=== PATIENT | male | born 2005 | race Two or more races ===

== ENCOUNTER 2023-09-05 12:30 | Emergency (ER) | payer OTHER ==
[~2023-09-05] VITALS: Ht 175.3 cm; Wt 79.6 kg
[2023-09-05 13:12] VITALS: BP 156/95; PULSE 80; RESP 18; TEMP 98.3; O2SAT 98
[2023-09-05 16:09] LABS: Urine Bacteria None Seen /hpf (None Seen)
[2023-09-05 16:44] LABS: Urine Blood Negative /uL (Negative); Urine Clarity Clear (Clear); Urine Color Yellow (Yellow); Urine Mucus FEW (None Seen); Urine Protein, UAD 1+ (Negative); Urine Specific Gravity 1.041 (1.001-1.035); Urine Urobilinogen Normal (Negative); Urine WBC 1 /hpf (0 - 3)
[2023-09-05] MEDS ORDERED: NAPR-746 PO (17:13)
[2023-09-06 08:07] LABS: RPR Non Reactive (Non Reactive)
[2023-09-06 15:06] LABS: Chlamydia Trachomatis, NAA Negative (Negative); Neisseria gonorrhoeae, NAA Negative (Negative)
== END 2023-09-05 17:18 | disposition home or self-care (01) ==
LOC: ER 12:30
DX: N50.812 Left testicular pain (principal); Z20.6 Contact with and (suspected) exposure to human immunodeficiency virus [HIV]
CPT/HCPCS: 76870; 81001; 86592; 86703

== ENCOUNTER 2023-09-26 19:11 | Emergency (ER) | payer OTHER ==
[~2023-09-26] VITALS: Ht 175.3 cm; Wt 79.4 kg
[~2023-09-26 19:11] MED LIST: NAPR-746 PO
[2023-09-27] MEDS ORDERED: IBUP-1456 PO (01:49)
[2023-09-27] MEDS ORDERED: CYCL-614 PO (01:49)
[2023-09-27 01:50] VITALS: BP 153/72; PULSE 80; RESP 18; TEMP 98.2; O2SAT 98
[2023-09-27] MEDS: ACETAMINOPHEN 325 MG TAB PO ONE (01:55)
== END 2023-09-27 04:37 | disposition home or self-care (01) ==
LOC: ER 19:11
DX: S16.1XXA Strain of muscle, fascia and tendon at neck level, initial encounter (principal); S46.911A Strain of unspecified muscle, fascia and tendon at shoulder and upper arm level, right arm, initial encounter; R51.9 Headache, unspecified; V43.52XA Car driver injured in collision with other type car in traffic accident, initial encounter; Y93.89 Activity, other specified; Y92.89 Other specified places as the place of occurrence of the external cause; Y99.8 Other external cause status
CPT/HCPCS: 70450; 72125

== ENCOUNTER 2024-11-29 20:25 | Emergency (ER) | payer OTHER ==
[~2024-11-29] VITALS: Ht 177.8 cm; Wt 81.4 kg
[~2024-11-29 20:25] MED LIST changes: +CYCL-614 PO; +IBUP-1455 PO; +IBUP-1456 PO
--- NOTE | 2024-11-29 20:42 | ED.PDOC ---
Eye-HPI HPI Comments PT PRESENTED TO ED FOR SORE THROAT, CONGESTION, HEADACHE, NAUSEA X1 WEEK. PT STATED HE TOOK HIS MOMS' ANTIBIOTICS W/O RELIEF. GCS-15, ALL VSS. Denies fever, chills, shortness breath, chest pain, difficulty breathing, vomiting, recent travel, or known Chief Complaint: Sore Throat Time Seen by MD: 20:27 Primary Care Provider: Unknown Reviewed Notes: Nurses Notes, Medications, Allergies Allergies: Coded Allergies: NO KNOWN ALLERGIES (Unverified , 09/05/23) Home Meds Active Scripts Methylprednisolone (Medrol Dosepak) 4 Mg Bashir, 4 MG PO UD for 6 Days, #21 TAB UAD Prov:AJITH LOZOYA [employer]RO[employer] BAGGAGE PORTER 11/29/24 Azithromycin (Azithromycin) 500 Mg Tab, 1 TAB PO DAILY for 5 Days, #5 TAB Prov:AJITH LOZOYA [employer] BAGGAGE PORTER 11/29/24 Ibuprofen Micronized (Ibuprofen) 800 Mg Tab, 800 MG PO Q8HP PRN, #20 TAB Prov:SAYRA MATHEWS PAC 01/28/24 Cyclobenzaprine HCl (Cyclobenzaprine Hydrochlo) 5 Mg Tab, 5 MG PO QHSP, #14 TAB 0 Refills Prov:SYLVIA GOMEZ 09/27/23 Ibuprofen (Ibuprofen) 800 Mg Tab, 1 TAB PO TID PRN, #30 TAB 0 Refills Prov:SYLVIA GOMEZ 09/27/23 Naproxen (Naproxen) 500 Mg Tab, 500 MG PO BIDPC for 14 Days, #28 TAB 0 Refills Prov:WARREN CERNA CALL WORKER PERSON 09/05/23 Information Source: Patient Mode of Arrival: Ambulatory Past Medical History PAST MEDICAL HISTORY: Denies Surgical History: Denies all surgeries Family History Family History: Unknown Social History Smoker: Non-Smoker Alcohol: Denies ETOH Use Drugs: Denies Drug Use Lives In: Home All Other Systems: Reviewed and Negative (see hpi) Physical Exam General Appearance: No Apparent Distress, Normal HEENT: Pharyngeal Erythema, Sinuses (frontal tender on palpation), TMs Normal Neck: Full Range of Motion, Non-Tender Respiratory: Lungs Clear, No Respiratory Distress, Normal Breath Sounds Cardiovascular: No Murmur, Normal Peripheral Pulses, Regular Rate/Rhythm Breast Exam: Deferred Gastrointestinal: Non Tender, Soft Genitalia: Deferred Pelvic: Deferred Rectal: Deferred Extremities: Normal range of motion, No pedal edema Musculoskeletal : Apperance: Normal Neurologic: Alert, No Motor Deficits, Normal Affect, Normal Mood, No Sensory Deficits Cerebellar Function: Normal Reflexes: NOT DONE Skin: Dry, Normal Color, Warm Lymphatic: No Adenopathy Was a procedure done? Was a procedure done?: No EENT DIFF Eye: N/A Ear: N/A Nose: N/A Mouth: N/A Sore Throat: Douglas's Angina, Peritonsillar Abscess, Peritonsillar Cellulitis, Pharyngitis, Streptococcal X-Ray, Labs, Meds, VS Vital Signs Date Time Temp Pulse Resp B/P (MAP) Pulse Ox O2 Delivery O2 Flow Rate FiO2 11/29/24 21:45 98.2 72 18 135/72 (93) 99 98.2 11/29/24 21:45 72 18 99 Room Air 11/29/24 20:26 98.6 74 16 143/74 100 98.6 Current Medications Medications (Trade) Dose Ordered Sig/Kathleen Route Start Time Stop Time Status Last Admin Dexamethasone Sodium Phosphate (Decadron Injection) 10 mg ONCE ONCE IM 11/29/24 21:00 11/29/24 21:01 DC 11/29/24 21:30 Ceftriaxone Sodium (Rocephin) 1,000 mg ONCE ONCE IM 11/29/24 21:00 11/29/24 21:01 DC 11/29/24 21:30 Lidocaine HCl (Xylocaine 1%) 1.9 ml ONCE ONCE IJ 11/29/24 21:30 11/29/24 21:31 DC 11/29/24 21:30 Time of 1ST Reevaluation: 20:41 Reevaluation 1ST: Unchanged Reevaluation 2ND: Improved Patient Education/Counseling: Diagnosis, Treatment, Prognosis, Need For Follow Up Family Education/Counseling: No Family Present SEPSIS Sepsis Screen Date sepsis recognized/suspect: Nov 29, 2024 Time Sepsis recognized/suspect: 2028 Recent Procedure: No On Antibiotic Therapy: No Respiratory Rate >20: No Heart Rate >90: No Temp<36 C (96.8 F) or >38.3 C: No SBP <90 or MAP <65 mmHG: No New Acute Mental Status Change: No Is the patient on CPAP, BIPAP,: No Vital Signs Date Time Temp Pulse Resp B/P (MAP) Pulse Ox O2 Delivery O2 Flow Rate FiO2 11/29/24 21:45 98.2 72 18 135/72 (93) 99 98.2 11/29/24 21:45 72 18 99 Room Air 11/29/24 20:26 98.6 74 16 143/74 100 98.6 Medications Medications Dose Ordered Sig/Kathleen Route Start Time Stop Time Status Last Admin Dose Admin Ceftriaxone Sodium 1,000 mg ONCE ONCE IM 11/29/24 21:00 11/29/24 21:01 DC 11/29/24 21:30 Dexamethasone Sodium Phosphate 10 mg ONCE ONCE IM 11/29/24 21:00 11/29/24 21:01 DC 11/29/24 21:30 Lidocaine HCl 1.9 ml ONCE ONCE IJ 11/29/24 21:30 11/29/24 21:31 DC 11/29/24 21:30 Departure 1 Departure Time of Disposition: 20:47 Impression: Primary Impression: URI (upper respiratory infection) Qualified Codes: J06.9 - Acute upper respiratory infection, unspecified Disposition: HOME / SELF CARE / HOMELESS Condition: Stable e-Prescriptions Methylprednisolone (Medrol Dosepak) 4 Mg Bashir 4 MG PO UD for 6 Days, #21 TAB UAD Prov: AJITH LOZOYA 11/29/24 Azithromycin (Azithromycin) 500 Mg Tab 1 TAB PO DAILY for 5 Days, #5 TAB Prov: AJITH LOZOYA 11/29/24 Discharged With: Self Critical Care Note Critical Care Time?: No Stability Stability form required: No AJITH LOZOYA Nov 29, 2024 20:42
[2024-11-29] MEDS ORDERED: METH4PAK PO (20:48)
[2024-11-29] MEDS ORDERED: AZIT500T66 PO (20:48)
[2024-11-29] MEDS: cefTRIAXone SOD 1,000 MG VL IM ONE (21:30)
[2024-11-29] MEDS: LIDOCAINE 1% HCL (LOCAL ANESTH.) INJ 20ML MDV IJ ONE (21:30)
[2024-11-29 21:45] VITALS: BP 135/72; PULSE 72; RESP 18; TEMP 98.2; O2SAT 99
== END 2024-11-29 21:47 | disposition home or self-care (01) ==
LOC: ER 20:25
DX: J06.9 Acute upper respiratory infection, unspecified (principal)
CPT/HCPCS: 96372; 99284; J0696; J1100

== ENCOUNTER 2025-01-20 13:25 | Emergency (ER) | payer OTHER ==
[~2025-01-20] VITALS: Ht 177.8 cm; Wt 81.9 kg
[2025-01-20 13:27] VITALS: BP 145/74; PULSE 66; RESP 19; TEMP 98.1; O2SAT 99
[2025-01-20] MEDS ORDERED: ACET500T58 PO (13:54)
--- NOTE | 2025-01-20 13:54 | ED.PDOC ---
HPI Comments 19-year-old male who presents to the ED for complaint of head injury. 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 Patient states he had bleeding from head but upon arrival to the ED patient has a small laceration noted on the superior head and noted bleeding is controlled. Patient denied any associated loss of consciousness after head injury and otherwise denies any headache dizziness or associated symptoms. Patient states last tetanus is unknown and states he will receive tetanus vaccine today Chief Complaint: Head Injury Time Seen by MD: 13:29 Primary Care Provider: Unknown Reviewed Notes: Medications, Allergies Allergies: Coded Allergies: NO KNOWN ALLERGIES (Unverified , 09/05/23) Home Meds Active Scripts Acetaminophen (Acetaminophen) 500 Mg Tab, 500 MG PO Q6HP PRN for 10 Days, #40 TAB 0 Refills Prov:WARREN CERNA REEL FED PRINTER 01/20/25 Ibuprofen Micronized (Ibuprofen) 800 Mg Tab, 800 MG PO Q8HP PRN, #20 TAB Prov:SAYRA MATHEWS PAC 01/28/24 Cyclobenzaprine HCl (Cyclobenzaprine Hydrochlo) 5 Mg Tab, 5 MG PO QHSP, #14 TAB 0 Refills Prov:SYLVIA GOMEZ 09/27/23 Ibuprofen (Ibuprofen) 800 Mg Tab, 1 TAB PO TID PRN, #30 TAB 0 Refills Prov:SYLVIA GOMEZ 09/27/23 Naproxen (Naproxen) 500 Mg Tab, 500 MG PO BIDPC for 14 Days, #28 TAB 0 Refills Prov:WARREN CERNA REEL FED PRINTER 09/05/23 Information Source: Patient Mode of Arrival: Ambulatory Complexity: Complex Laceration Length (cm): 1 Past Medical History PAST MEDICAL HISTORY: Denies Surgical History: Denies all surgeries Family History Family History: Unknown Social History Smoker: Non-Smoker Alcohol: Denies ETOH Use Drugs: Denies Drug Use Lives In: Home Constitutional: denies: chills, diaphoresis, fatigue, fever, malaise, sweats, weakness, others EENTM: denies: blurred vision, double vision, ear bleeding, ear discharge, ear drainage, ear pain, ear ringing, eye pain, eye redness, hearing loss, mouth pain, mouth swelling, nasal discharge, nose bleeding, nose congestion, nose pain, photophobia, tearing, throat pain, throat swelling, voice changes, others Respiratory: denies: cough, hemoptysis, orthopnea, SOB at rest, shortness of breath, SOB with excertion, stridor, wheezing, others Cardiovascular: denies: chest pain, dizzy spells, diaphoresis, Dyspnea on exertion, edema, irregular heart beat, left arm pain, lightheadedness, pal pitations, PND, syncope, others Gastrointestinal: denies: abdomen distended, abdominal pain, blood streaked bowels, constipated, diarrhea, dysphagia, difficulty swallowing, hematemesis, melena, nausea, poor appetite, poor fluid intake, rectal bleeding, rectal pain, vomiting, others Genitourinary: denies: burning, dysuria, flank pain, frequency, hematuria, incontinence, penile discharge, penile sore, pain, testicle pain, testicle swelling, urgency, others Neurological: denies: dizziness, fainting, headache, left sided numbness, left sided weakness, numbness, paresthesia, pre-existing deficit, right sided numbness, right sided weakness, seizure, speech problems, tingling, tremors, weakness, others Musculoskeletal: denies: back pain, gout, joint pain, joint swelling, muscle pain, muscle stiffness, neck pain, others Integumetry: reports: laceration (Superior head); denies: bruises, change in color, change in hair/nails, dryness, lesions, lumps, rash, wounds, others Allergic/Immunocompromised: denies: Difficulty Healing, Frequent Infections, Hives, Itching, others Hematologic/Lymphatic: denies: anemia, blood clots, easy bleeding, easy bruising, swollen glands, others Endocrine: denies: excessive hunger, excessive sweating, excessive thirst, excessive urination, flushing, intolerance to cold, intolerance to heat, unexplained weight gain, unexplained weight loss, others Psychiatric: denies: anxiety, bipolar disorder, depression, hopeless, panic disorder, schizophrenia, sleepless, suicidal, others All Other Systems: Reviewed and Negative Physical Exam General Appearance: No Apparent Distress, Normal HEENT: Normal ENT Inspection, Pharynx Normal, TMs Normal Neck: Full Range of Motion, Non-Tender, Normal, Normal Inspection Respiratory: Chest Non-Tender, Lungs Clear, No Accessory Muscle Use, No Respiratory Distress, Normal Breath Sounds Cardiovascular: No Edema, No JVD, No Murmur, No Gallop, Normal Peripheral Pulses, Regular Rate/Rhythm Breast Exam: Deferred Gastrointestinal: No Organomegaly, Non Tender, No Pulsatile Mass, Normal Bowel Sounds, Soft Genitalia: Deferred Pelvic: Deferred Rectal: Deferred Extremities: No calf tenderness, Normal capillary refill, Normal inspection, Normal range of motion, Non-tender, No pedal edema Musculoskeletal : Apperance: Normal Neurologic: Alert, right of way agent II-XII nml as Tested, No Motor Deficits, Normal Affect, Normal Mood, No Sensory Deficits Cerebellar Function: Normal Reflexes: Normal Skin: Lacerations (1 cm laceration to superior head) Lymphatic: No Adenopathy Was a procedure done? Was a procedure done?: Yes Sedation Sedation?: No Laceration Repair : Location head Length 1 Anesthetic: Lidocaine, Bupivacaine Laceration Repair Prep: Saline, Betadine Laceration Repair Wound Comple: epidermis/dermis repair Laceration Repair: [place], Bacitracin, Non-adherent gauze, Gauze Differential diagnosis Generic Laceration: Hematoma, Laceration, Avulsion Differential Diagnosis: Closed Head Injury, Skull Fracture X-Ray, Labs, Meds, VS Vital Signs Date Time Temp Pulse Resp B/P (MAP) Pulse Ox O2 Delivery O2 Flow Rate FiO2 01/20/25 13:27 98.1 66 19 145/74 99 98.1 Current Medications Medications (Trade) Dose Ordered Sig/Kathleen Route Start Time Stop Time Status Last Admin Diphtheria/ Tetanus/Acell Pertussis (Boostrix T-Dap) 0.5 ml ONCE ONCE IM 01/20/25 14:00 01/20/25 14:01 DC 01/20/25 14:09 X-Ray, Labs, Meds, VS Comment Patient arrives alert and oriented, ABC's intact, afebrile, vital signs stable, saturating well in room air No indication for head ct Additional MDM Review of External, Non-ED records: External records reviewed. Discussion with independent historian (EMS, family) history obtained from the patient/parents (if applicable) at bedside Chronic conditions affecting care: None Social determinants of health affecting care: None Consideration of admission (observation or admission): I considered escalation of care to admission for this patient, however given the reassuring workup, the patient is safe for outpatient management. Time of Reevaluation: 14:00 Reevaluation 1ST: Improved Patient Education/Counseling: Diagnosis, Treatment Family Education/Counseling: No Family Present Departure 1 Departure Time of Disposition: 13:53 Impression: Primary Impression: Laceration of head Qualified Codes: S01.01XA - Laceration without foreign body of scalp, initial encounter Disposition: HOME / SELF CARE / HOMELESS Condition: Stable e-Prescriptions Acetaminophen (Acetaminophen) 500 Mg Tab 500 MG PO Q6HP PRN for 10 Days, #40 TAB 0 Refills Prov: WARREN CERNA NP 01/20/25 Discharged With: Self Critical Care Note Critical Care Time?: No Stability Stability form required: No Heart Score Heart Score: Heart Score Response (Comments) Value History N/A 0 EKG N/A 0 Age N/A 0 Risk Factors N/A 0 Troponin N/A 0 Total 0 I personally scribed for WARREN CERNA NP ([email or web address]) on 01/20/25 at 13:59. Electronically submitted by Viktor MOLINA). WARREN CERNA NP Jan 20, 2025 13:54
[2025-01-20] MEDS: TETANUS-DIPTH-ACEL PERTUSSIS 0.5ML SYR Tdap IM ONE (14:09)
== END 2025-01-20 14:20 | disposition home or self-care (01) ==
LOC: ER 13:27
DX: S01.91XA Laceration without foreign body of unspecified part of head, initial encounter (principal); Z79.899 Other long term (current) drug therapy; Z23 Encounter for immunization; X58.XXXA Exposure to other specified factors, initial encounter; Y93.89 Activity, other specified; Y92.89 Other specified places as the place of occurrence of the external cause; Y99.8 Other external cause status
CPT/HCPCS: 12011; 90471; 90715

== ENCOUNTER 2025-01-30 19:18 | Emergency (ER) | payer OTHER ==
[~2025-01-30] VITALS: Ht 177.8 cm; Wt 78.7 kg
[~2025-01-30 19:18] MED LIST changes: +ACET500T58 PO
[2025-01-30 19:21] VITALS: BP 130/86; PULSE 67; RESP 18; TEMP 98; O2SAT 100
--- NOTE | 2025-01-30 21:51 | ED.PDOC ---
History of Present Illness(SKN HPI Comments 19 year old male presents to ER with complaints of staple removal. Patient states he was seen and evaluated in ER here 10 days ago and had two joaquin placed to scalp at that time s/p laceration caused by accidentally hitting the top of his scalp against the corner of a truck door. States the wound appeared to heal well without any complication. Patient presents to ER ambulatory, with steady gait, in no distress. Denies headache, fever, skin drainage or any further symptoms/complaints Chief Complaint: Suture Removal Time Seen by MD: 19:49 Primary Care Provider: Unknown History of Present Illness: Nurses Notes, Medications, Allergies Allergies: Coded Allergies: NO KNOWN ALLERGIES (Unverified , 09/05/23) Home Meds Active Scripts Acetaminophen (Acetaminophen) 500 Mg Tab, 500 MG PO Q6HP PRN for 10 Days, #40 TAB 0 Refills Prov:WARREN CERNA NP 01/20/25 Ibuprofen Micronized (Ibuprofen) 800 Mg Tab, 800 MG PO Q8HP PRN, #20 TAB Prov:SAYRA MATHEWS PAC 01/28/24 Cyclobenzaprine HCl (Cyclobenzaprine Hydrochlo) 5 Mg Tab, 5 MG PO QHSP, #14 TAB 0 Refills Prov:SYLVIA GOMEZ 09/27/23 Ibuprofen (Ibuprofen) 800 Mg Tab, 1 TAB PO TID PRN, #30 TAB 0 Refills Prov:SYLVIA GOMEZ 09/27/23 Naproxen (Naproxen) 500 Mg Tab, 500 MG PO BIDPC for 14 Days, #28 TAB 0 Refills Prov:WARREN CERNA YARN TWISTER 09/05/23 Information Source: Patient Mode of Arrival: Ambulatory Past Medical History PAST MEDICAL HISTORY: Denies Surgical History: Denies all surgeries Family History Family History: Unknown Social History Smoker: Non-Smoker Alcohol: Denies ETOH Use Drugs: Denies Drug Use Lives In: Home Constitutional: denies: chills, diaphoresis, fatigue, fever, malaise, sweats, weakness, others EENTM: denies: blurred vision, double vision, ear bleeding, ear discharge, ear drainage, ear pain, ear ringing, eye pain, eye redness, hearing loss, mouth pain, mouth swelling, nasal discharge, nose bleeding, nose congestion, nose pain, photophobia, tearing, throat pain, throat swelling, voice changes, others Respiratory: denies: cough, hemoptysis, orthopnea, SOB at rest, shortness of breath, SOB with excertion, stridor, wheezing, others Cardiovascular: denies: chest pain, dizzy spells, diaphoresis, Dyspnea on exertion, edema, irregular heart beat, left arm pain, lightheadedness, palpitations, PND, syncope, others Gastrointestinal: denies: abdomen distended, abdominal pain, blood streaked bowels, constipated, diarrhea, dysphagia, difficulty swallowing, hematemesis, melena, nausea, poor appetite, poor fluid intake, rectal bleeding, rectal pain, vomiting, others Genitourinary: denies: burning, dysuria, flank pain, frequency, hematuria, incontinence, penile discharge, penile sore, pain, testicle pain, testicle swelling, urgency, others Neurological: denies: dizziness, fainting, headache, left sided numbness, left sided weakness, numbness, paresthesia, pre-existing deficit, right sided numbness, right sided weakness, seizure, speech problems, tingling, tremors, weakness, others Musculoskeletal: denies: back pain, gout, joint pain, joint swelling, muscle pain, muscle stiffness, neck pain, others Integumetry: reports: others (As stated in HPI) Allergic/Immunocompromised: denies: Difficulty Healing, Frequent Infections, Hives, Itching, others Hematologic/Lymphatic: denies: anemia, blood clots, easy bleeding, easy bruising, swollen glands, others Endocrine: denies: excessive hunger, excessive sweating, excessive thirst, excessive urination, flushing, intolerance to cold, intolerance to heat, unexplained weight gain, unexplained weight loss, others Psychiatric: denies: anxiety, bipolar disorder, depression, hopeless, panic disorder, schizophrenia, sleepless, suicidal, others Physical Exam General Appearance: No Apparent Distress, Normal HEENT: Normal ENT Inspection, PERRL/EOMI, Pharynx Normal, TMs Normal Neck: Full Range of Motion, Non-Tender, Normal Respiratory: Chest Non-Tender, Lungs Clear, No Accessory Muscle Use, No Respiratory Distress, Normal Breath Sounds Cardiovascular: No Murmur, No Gallop, Regular Rate/Rhythm Breast Exam: Deferred Gastrointestinal: NOT DONE Genitalia: Deferred Pelvic: Deferred Rectal: Deferred Extremities: Normal capillary refill, Normal range of motion Neurologic: Alert, hospice fellow II-XII nml as Tested, No Motor Deficits, Normal Affect, Normal Mood, No Sensory Deficits Cerebellar Function: Normal Reflexes: Normal Skin: Dry, Normal Color, Warm Lymphatic: No Adenopathy Was a procedure done? Was a procedure done?: No Sedation Sedation?: No Images 1 - Two joaquin in place to healed wound without any signs of infeciton appreciated Differential Diagnosis (INTG) Differential Diagnosis: Abrasion Differential Diagnosis: Cellulitis, Other (Fracture) X-Ray, Labs, Meds, VS Vital Signs Date Time Temp Pulse Resp B/P (MAP) Pulse Ox O2 Delivery O2 Flow Rate FiO2 01/30/25 19:21 98.0 67 18 130/86 100 98.0 Previous chart visit reviewed All joaquin removed at bedside without complication Advised to follow up with PCP in 1-2 days Patient verbalized understanding and agreeable with current plan of care Advised to return to ER immediately if symptoms worsen Time of 1ST Reevaluation: 21:24 Reevaluation 1ST: N/A Patient Education/Counseling: Diagnosis, Treatment, Prognosis, Need For Follow Up Family Education/Counseling: No Family Present SEPSIS Sepsis Screen Date sepsis recognized/suspect: Jan 30, 2025 Time Sepsis recognized/suspect: 1920 Recent Procedure: No On Antibiotic Therapy: No Respiratory Rate >20: No Heart Rate >90: No Temp<36 C (96.8 F) or >38.3 C: No SBP <90 or MAP <65 mmHG: No New Acute Mental Status Change: No Is the patient on CPAP, BIPAP,: No Vital Signs Date Time Temp Pulse Resp B/P (MAP) Pulse Ox O2 Delivery O2 Flow Rate FiO2 01/30/25 19:21 98.0 67 18 130/86 100 98.0 Departure 1 Departure Time of Disposition: 21:50 Impression: Primary Impression: Laceration of head Qualified Codes: S01.01XA - Laceration without foreign body of scalp, initial encounter Additional Impression: Encounter for removal of joaquin Disposition: HOME / SELF CARE / HOMELESS Condition: Stable Discharged With: Self Critical Care Note Critical Care Time?: No Stability Stability form required: No Heart Score Heart Score: Heart Score Response (Comments) Value History N/A 0 EKG N/A 0 Age N/A 0 Risk Factors N/A 0 Troponin N/A 0 Total 0 SYLVIA GOMEZ Jan 30, 2025 21:51
== END 2025-01-30 21:59 | disposition home or self-care (01) ==
LOC: ER 19:24
DX: S01.01XD Laceration without foreign body of scalp, subsequent encounter (principal); Z79.899 Other long term (current) drug therapy; Z48.02 Encounter for removal of sutures; X58.XXXD Exposure to other specified factors, subsequent encounter